=== PATIENT | female | born 1930 | race Caucasian/White ===

== ENCOUNTER 2016-11-09 16:18 | Emergency (ER) | payer BC ==
[2016-11-09 13:43] LABS: BASOPHILS 1.3 %; BASOPHILS ABSOLUTE 0.14 10/3/uL (0.0-0.16); EOSINOPHILS 1.6 %; EOSINOPHILS ABSOLUTE 0.17 10/3/uL (0.0-0.53); ER CBC TAT 0 Hrs 05 Mins; HEMATOCRIT 38.6 % (36.0-48.0); HEMOGLOBIN 12.3 g/dL (12.0-16.0); IMMATURE GRANULOCYTES 0.3 %; IMMATURE GRANULOCYTES ABSOLUTE 0.03 10/3/uL (0.0-0.11); LYMPHOCYTES 16.4 %; LYMPHOCYTES ABSOLUTE 1.79 10/3/uL (0.67-4.30); MEAN CORPUS HGB CONC 31.9 g/dL (32.0-36.0); MEAN CORPUSCULAR HEMOGLOB 29.6 pg (26.0-34.0); MEAN CORPUSCULAR VOLUME 92.8 fL (80-100); MEAN PLATELET VOLUME 11.5 fL (9.2-13.0); MONOCYTES 15.4 %; MONOCYTES ABSOLUTE 1.69 10/3/uL (0.21-1.20); NEUTROPHILS ABSOLUTE 7.12 10/3/uL (2.02-8.40); PLATELET COUNT 199 10/3/uL (150-400); RBC DISTRIBUTION WIDTH 19.1 % (12.0-16.0); RED CELL COUNT 4.16 10/6/uL (4.0-5.6); WHITE BLOOD CELLS 10.9 10/3/uL (4.5-10.5)
[2016-11-09 13:45] LABS: MANUAL DIFF NO %
[2016-11-09 13:51] LABS: INTERNATIONAL NORMAL RATI 3.1 UNITS (-); PARTIAL THROMBO TIME 43.6 SEC (22.5-37.2)
[2016-11-09 14:01] LABS: CHLORIDE, SERUM 106 MMOL/L (96-112); CO2 (CARBON DIOXIDE) 28 MMOL/L (24-34); GFR AFRICAN AMERICAN 78 ML/MIN (>=60); GFR NON AFRICAN AMERICAN 68 ML/MIN (>=60); GLUCOSE, SERUM 91 MG/DL (60-99); POTASSIUM, SERUM 3.7 MMOL/L (3.5-5.3); SODIUM, SERUM 142 MMOL/L (135-148)
[2016-11-09 14:03] LABS: BUN (BLOOD UREA NITROGEN) 22 MG/DL (6-23); CHEST PAIN PROFILE TAT 0 Hrs 25 Mins; TROPONIN I 0.06 NG/ML (<0.05)
[~2016-11-09 16:18] MED LIST: BUM1 PO; CALTRA600D PO; CENTRUM TAB1 TAB PO; COUMADIN3 MG PO; CYANO1000T PO; DIOV80 PO; FERROUS SULF325 M1 PO; HYDROCODONE; IBUPROFEN; LAN125 PO; LIPITOR20 PO; LOP25 PO; NORCO1 TA1 PO; PARAFON FORTE500 MG PO; PRIN5 PO; SPIRO25 PO; TOPROL XL200 MG PO; TOPXL100 PO
[2017-01-29] MEDS ORDERED: OS500+D PO (07:36)
[2017-02-11] MEDS ORDERED: ZYVOXPO PO (23:49)
[2017-02-11] MEDS ORDERED: PRIN2.5 PO (23:51)
== END 2016-11-09 18:50 | disposition home or self-care (01) ==
LOC: ER 16:18
PROVIDERS: Hospitalist
DX: R60.0 Localized edema (principal); I48.91 Unspecified atrial fibrillation; I50.9 Heart failure, unspecified; Z90.49 Acquired absence of other specified parts of digestive tract; Z88.8 Allergy status to other drugs, medicaments and biological substances; Z79.01 Long term (current) use of anticoagulants; Z79.899 Other long term (current) drug therapy
CPT/HCPCS: 71020; 80048; 83735; 83880; 84484; 85025; 85610; 85730; 93005; 99285; A9270-GY

== ENCOUNTER 2017-01-29 06:08 | Inpatient (IN) | payer BC ==
[~2017-01-29] VITALS: Ht 157.5 cm; Wt 102.6 kg
--- NOTE | ~2017-01-29 | CN ---
Consultation Report [facility] [address] [place]. [address] NAME: DELMER CALLAHAN : 34 STATUS : ADM IN [facility]#: [id number] AGE: 86 ADM/REG DATE : 01/29/17 MR#: [id number] REPORT SERV DATE: 01/29/17 DICTATED BY: WILVER CODY DATE: 01/29/17 REPORT STATUS : Draft TRANSCRIBED BY: MODL DATE: 01/29/17 CARDIOLOGY CONSULTATION DATE OF CONSULTATION: [facility] PHYSICIAN: Dr. Garcias. REASON FOR CONSULTATION: History of valvular heart disease. HISTORY OF PRESENT ILLNESS: Ms. Callahan is an 86-year-old woman with a history of valvular heart disease, status post aortic and mitral valve replacements, whose recent echo suggests prosthetic mitral valve stenosis. She has been hospitalized with congestive heart failure and presented to the hospital with worsening lower extremity edema. She has right lower extremity cellulitis with significant erythema involving that leg an elevated white count. She denies chest pain or chest discomfort. She is somewhat somnolent, but is arousable. She denies any chest pain or tightness. She has mild dyspnea. REVIEW OF SYSTEMS: As per the history of present illness. Ten other systems are negative. PAST MEDICAL HISTORY: 1. 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 2. Chronic edema. 3. Chronic kidney disease. FAMILY HISTORY: Positive for cancer and heart failure. SOCIAL HISTORY: No tobacco or alcohol reported. ALLERGIES: NO KNOWN DRUG ALLERGIES. HOME MEDICATIONS: Lipitor 20 at bedtime, Bumex 2 daily, Caltrate, Lanoxin 0.25 daily, metoprolol ER 100 daily, valsartan 80 daily, Coumadin as directed. PHYSICAL EXAMINATION: VITAL SIGNS: Heart rate 84, blood pressure 124/60. GENERAL: The patient is pleasant white female. She is arousable, but a little somnolent. HEENT: Conjunctivae are anicteric, no xanthelasma, lips without cyanosis. NECK: Supple, normal JVP, carotids +2 without bruit. LUNGS: Clear to auscultation bilaterally, no wheezes, rales or rhonchi. CARDIOVASCULAR: Regular rate and rhythm. Normal S1 and S2 without S3. No murmur or rub. PMI is nondisplaced. ABDOMEN: Soft, nontender, nondistended, with normal bowel sounds. No hepatomegaly. Consultation Report [address] [place]. [address] NAME: DELMER CALLAHAN : 32 STATUS : ADM IN PAT#: [id number] AGE: 86 ADM/REG DATE : 01/29/17 MR#: [id number] REPORT SERV DATE: 01/29/17 DICTATED BY: WILVER CODY DATE: 01/29/17 REPORT STATUS : Draft TRANSCRIBED BY: CONSTANTIN DATE: 01/29/17 EXTREMITIES: No clubbing, cyanosis or edema. NEURO/PSYCH: Alert and oriented to person, place and time. No obvious neurologic deficits. Mood and affect normal. IMAGING: EKG shows atrial fibrillation with occasional ventricular systole. LABORATORY DATA: White blood cell count of 17.7, creatinine is 1.5, lactate 3.1, BNP level is 1994. IMPRESSION: 1. Right lower extremity cellulitis. 2. Acute on chronic systolic heart failure secondary to valvular heart disease. 3. Mitral stenosis with severe tricuspid regurgitation and severe pulmonary hypertension. 4. Hypertension. 5. Hypercholesterolemia. 6. Atrial fibrillation. 7. Acute on chronic kidney disease. RECOMMENDATIONS: Ms. Callahan presents with cellulitis. She has a lot of lower extremity edema, some of it is chronic. Creatinine is mildly elevated. I think right now gentle diuresis with supportive care for her cellulitis is warranted. It is unclear whether she will be a good candidate for mitral valve replacement given her multiple comorbidities. WO/MODL Wilver Cody M.D., Ph.D, F.A.C.C. / [id number] CC: Wilver Covington Jr, MD
--- NOTE | ~2017-01-29 | IDS ---
Interim Discharge Summary [facility] [address] [place]. [address] NAME: DELMER HELMS : 32 STATUS : ADM IN PAT#: [id number] AGE: 86 ADM/REG DATE : 01/29/17 MR#: [id number] REPORT SERV DATE: 02/03/17 DICTATED BY: DAVID COSBY DATE: 02/03/17 REPORT STATUS : Draft TRANSCRIBED BY: MODEmeli DATE: 02/03/17 ADMISSION DATE: 01/29/2017 DISCHARGE DATE: CURRENT HOSPITAL DIAGNOSES: 1. Lower extremity cellulitis. 2. Lower extremity edema. 3. Valvular heart disease, not amenable to surgical correction. 4. Acute kidney injury. 5. Chronic atrial fibrillation. 6. Hypertension. 7. Diastolic congestive heart failure. 8. Severe pulmonary hypertension. CONSULTATIONS: To Infectious Disease, Dr. Campbell; renal and [facility], Dr. Garcias. PROCEDURES: None. CURRENT PHYSICAL FINDINGS AND HISTORY OF PRESENT ILLNESS: Please see initial dictated H and P by Dr. Connell. In brief, the patient is very pleasant, 86-year-old female with above medical history, presented with lower extremity edema, erythema, and weeping of the lower extremity. Vital signs at time of admission, initial blood pressure was 115/51, no significant fever noted. LABORATORY DATA: Initial BMP was remarkable for creatinine of 1.52. The patient unfortunately has a creatinine of 2.20 currently secondary to attempts at diuresis. Initial BNP was 1994.0. Lactate was 3.1, subsequent was 2.2. Initial white count was 17,000 reaching a high of 32.5 on 01/30/2017. Subsequent white counts have trended down to the most recent 11.6 on 02/02/2017. Hemoglobin has been 9 to 10. INRs were 2.3 on admission and the patient has remained approximately 2.5 through her hospital stay. Urinalysis was unremarkable. Blood cultures are negative at four days. Wound culture did show MRSA. HOSPITAL COURSE: The patient was admitted. Home medications were reviewed and ordered appropriately. [facility] was consulted for any other recommendations given her valvular heart disease and significant edema. Serial INRs were followed while on Coumadin. She was given IV Bumex scheduled dosing, started on vancomycin. Wound Care was also consulted. She was placed on cardiac telemetry, electrolyte protocol. With the elevated white count the following day, Zosyn was added. I assumed the patient's care on 01/30/2017, repeated her CBC to confirm it was elevated, continued her Bumex, ordered serial labs, and request UA. Cardiology came by and added Diuril. Infectious Disease discontinued the vancomycin and continued Zyvox, also ordered hepatic panel. She started having a bump in her creatinine. Her Bumex and Diuril were discontinued and Renal was consulted. Because of her bump in creatinine, digoxin level was checked, it was elevated at 4. The patient was asymptomatic and no Digibind was used. Nephrology saw the patient, additional diuretics and Interim Discharge Summary [address] [place]. [address] NAME: DELMRE HELMS : 32 STATUS : ADM IN PAT#: [id number] AGE: 86 ADM/REG DATE : 01/29/17 MR#: [id number] REPORT SERV DATE: 02/03/17 DICTATED BY: DAVID COSBY DATE: 02/03/17 REPORT STATUS : Draft TRANSCRIBED BY: CONSTANTIN DATE: 02/03/17 albumin were requested. Pharmacy was consulted to manage her Coumadin. However, a leg culture was done on 01/31/2017. On 02/01/2017, a trial of Bumex drip was done by Nephrology, however, her creatinine has continued to rise. After a long discussion with the patient and her family on 02/02/2017, she requested DNR status and was agreeable to Palliative Care consult next available. On 02/03/2017, her drip was stopped and renal signed off. Cardiology continues to follow. She was transitioned to daily IV Bumex. On 02/03/2017, her Zosyn was discontinued and she was placed on p.o. Zyvox with the MRSA culture. CURRENT DISPOSITION: The patient will have Palliative Care consult on Saturday. We will get recommendations from ID on length of continuing her antibiotic. Renal has signed off. Cardiology has very little to offer. I have discussed also with the patient's sons and power of attorney recruiter, they feel they cannot meet her needs at home and have requested placement, and this will be initiated. LEEANNE/CONSTANTIN David Cosby M.D. / [id number] CC: Coty Hwang M.D.
--- NOTE | ~2017-01-29 | CN ---
Consultation Report [facility] [address] [place]. [address] NAME: DELMER HELMS : 32 STATUS : ADM IN [facility]#: [id number] AGE: 86 ADM/REG DATE : 01/29/17 MR#: [id number] REPORT SERV DATE: 01/30/17 DICTATED BY: ALEXUS CAMPBELL DATE: 01/30/17 REPORT STATUS : Draft TRANSCRIBED BY: MODL DATE: 01/30/17 INFECTIOUS DISEASE CONSULTATION DATE OF CONSULTATION: 01/30/2017 REASON FOR CONSULTATION: Sepsis and worsening leukocytosis. HISTORY OF PRESENT ILLNESS: This is an 86-year-old female with a past medical history of rheumatic valvular heart disease with a history of both aortic and mitral valve replacements who also has history of atrial fibrillation, hypertension, hyperlipidemia, CHF, and some chronic lower extremity edema. Despite her mitral valve replacement in 2009, she has developed severe mitral stenosis. She has had worsening recent lower extremity edema but a few days prior to her January 29 admission, she developed worsening redness and pain and weeping from the right lower leg. She presented to the emergency department early yesterday morning and was found to have a white blood cell count of 17,700. Blood cultures were done, and she was started on empiric antibiotics with vancomycin. Zosyn was added with first dose this morning around 4:30. Her repeat white blood cell count today is 32,500. She says she overall feels about the same. She has been for the most part hemodynamically stable although later today has developed relative hypotension with blood pressures in the 90s systolic range. The patient also tells me that she had a laparoscopic cholecystectomy about a month ago at [facility]. She denies any nausea, vomiting, diarrhea, or abdominal pain. PAST MEDICAL HISTORY: As outlined above. Her aortic valve replacement was in 2009. She also has a history of pulmonary hypertension, iron-deficiency anemia, breast reduction surgery. ALLERGIES: NO KNOWN DRUG ALLERGIES. PRESENT MEDICATIONS: In addition to the antibiotics include Lipitor, Bumex, Caltrate, vitamin D, digoxin, Toprol-XL, and Coumadin. SOCIAL HISTORY: The patient is . Nonsmoker and nondrinker. FAMILY HISTORY: Notable for brother with diabetes. REVIEW OF SYSTEMS: No chest pain or shortness of breath. No genitourinary symptoms. She denies any trauma to her legs. The rest of the 10-point review of systems is also negative except as outlined above. PHYSICAL EXAMINATION: VITAL SIGNS: Patient weighs 68 kg. She is afebrile. Blood pressure 98/46, pulse 60, respiratory rate 16 to 18. GENERAL: She is alert, lying in a chair. No acute distress. Consultation Report [facility] [id number] [place]. [address] NAME: DELMER HELMS : 32 STATUS : ADM IN PAT#: [id number] AGE: 86 ADM/REG DATE : 01/29/17 MR#: [id number] REPORT SERV DATE: 01/30/17 DICTATED BY: ALEXUS CAMPBELL DATE: 01/30/17 REPORT STATUS : Draft TRANSCRIBED BY: CONSTANTIN DATE: 01/30/17 HEAD AND NECK: Conjunctivae normal. The oral cavity is clear. Neck is supple. LUNGS: Clear to auscultation anteriorly. CARDIAC: Shows a regular rate and rhythm. She does have a 2/6 systolic murmur heard throughout the precordium. No rub. ABDOMEN: Obese, soft, and nontender. Specifically, no right upper quadrant tenderness to palpation. She is sitting in a chair, and I had a little difficulty seeing wounds from laparoscopic cholecystectomy. EXTREMITIES: The patient has quite significant edema of her lower legs and feet. The right lower leg has a large area of erythema and warmth with weeping of serous fluid but no significant open wounds and nothing really to culture. She is tender over this area although not dramatically so. I do not appreciate any crepitus. No bulla. The patient has a peripheral IV in her left upper extremity without phlebitis. SKIN: Shows no rash. LABORATORY STUDIES: White blood cell count as mentioned, she does not have a left shift, hemoglobin 10.0, and platelets 178. Creatinine 1.54, was 1.52 yesterday and was 0.80 on November 09. Procalcitonin 0.19. Lactate 2.2 on admission. Admission liver function tests showed a bilirubin of 2.2, alkaline phosphatase 152, and AST of 42. Blood cultures are negative to date. On January 25, the patient had a venous reflux study which showed no definite reflux in the right or left lower extremity although the exam was somewhat limited. On the same day, she had arterial Dopplers of her lower extremities which showed minimal if any arterial occlusive disease at or above the level of the ankles. Also, there is minimal if any small vessel disease in the feet. Chest x-ray is negative. IMPRESSION: Sepsis on admission secondary to right lower extremity cellulitis with white blood cell count going from 17.7 yesterday to 32.5 today. This jump in her white blood cell count may be secondary to possible subtherapeutic vancomycin levels. It is also possible she has a gram-negative ree cellulitis and she was not started on Zosyn until really at the time of the blood draw this morning. Overall though I think that is unlikely. I do not think she has a deeper surgical infection. She also gives this history of recent laparoscopic cholecystectomy and does have elevated liver function tests. These laboratory elevations may be secondary to hepatic congestion, but we need to consider the possibility of a complication of her surgery if she does not improve. She has both aortic and mitral valve replacements. PLAN: 1. We will change vancomycin to Zyvox for more reliable therapeutic levels in this particular setting with edema, acute kidney injury, and her age. 2. I will continue Zosyn for now. 3. Repeat white blood cell count in the morning along with liver function tests. 4. She may need a CT scan of the right lower extremity although it would need to be without contrast and may need a CT scan of the abdomen and pelvis if she does not improve; however, a noncontrast CT of the leg is unlikely to be very helpful. Consultation Report [address] [place]. [address] NAME: DELMER HELMS : 32 STATUS : ADM IN [facility]#: [id number] AGE: 86 ADM/REG DATE : 01/29/17 MR#: [id number] REPORT SERV DATE: 01/30/17 DICTATED BY: ALEXUS CAMPBELL DATE: 01/30/17 REPORT STATUS : Draft TRANSCRIBED BY: CONSTANTIN DATE: 01/30/17 STEVEN/CONSTANTIN Alexus Campbell M.D. / [id number] CC: Coty Hwang M.D.
--- NOTE | ~2017-01-29 | CN ---
Consultation Report [facility] [address] [place]. [address] NAME: DELMER CALLAHAN : 32 STATUS : ADM IN PAT#: [id number] AGE: 86 ADM/REG DATE : 01/29/17 MR#: [id number] REPORT SERV DATE: 01/31/17 DICTATED BY: DATE: REPORT STATUS : Draft TRANSCRIBED BY: MODL DATE: 01/31/17 DATE OF CONSULTATION: REASON FOR CONSULTATION: Acute kidney injury. HISTORY OF PRESENT ILLNESS: Ms. Callahan is an 86-year-old white female with no history of kidney disease in the past, but has significant and cardiac issues that include severe pulmonary hypertension, history of mitral valve replacement with prosthetic mitral stenosis, aortic insufficiency, severe TR, and she presented to the hospital with worsening redness and edema to the right lower extremity. She states it started prior to presentation and increasing shortness of breath. She was felt to have sepsis due to right lower extremity cellulitis, admitted for further evaluation, being currently in the hospital with antibiotics. They have tried to diurese her, however, her kidney function has gone from baseline creatinine 0.7 to 0.8, it was 1.5 on admission, now it is up to 1.7, and we have been asked to see the patient in consultation. She denies any dysuria or hematuria. No kidney disease in the past. PAST MEDICAL HISTORY: Pulmonary hypertension, iron deficiency anemia, breast reduction, mitral stenosis, mitral valve replacement, aortic insufficiency, severe pulmonary hypertension, tricuspid regurgitation, paroxysmal atrial fibrillation, and heart failure. ALLERGIES: NONE. SOCIAL HISTORY: She is . No tobacco, alcohol, or illicit drug use. FAMILY MEDICAL HISTORY: Negative for any end-stage renal disease. MEDICATIONS: Medications at the time of consultation, Zyvox, Zosyn, digoxin, Bumex, Lipitor, Caltrate, and Coumadin. REVIEW OF SYSTEMS: A 12-point review of systems is obtained and negative with the exception that in the HPI. PHYSICAL EXAMINATION: VITAL SIGNS: Temp 98, blood pressure 103/49, pulse 65, respiratory rate 17, O2 saturation is 95% on 2 L. GENERAL: This is a pleasant, cooperative, elderly white female. She is awake, alert, and oriented x3. Sitting up in chair at bedside. HEENT: Normocephalic and atraumatic. Conjunctivae are clear. Sclerae are anicteric. Pupils are equal and round. Oral mucosa is moist. NECK: Supple. She does have some neck vein distention. LUNGS: Her respirations are even and unlabored. Breath sounds are clear to auscultation. CARDIAC: Her heart rate is regular. She has a 4/6 systolic ejection murmur best heard over mitral region. ABDOMEN: Soft, nontender. Bowel sounds are active. No masses or hepatosplenomegaly. No Consultation Report [facility] [id number]. [address] NAME: DELMER CALLAHAN : 32 STATUS : ADM IN PAT#: [id number] AGE: 86 ADM/REG DATE : 01/29/17 MR#: [id number] REPORT SERV DATE: 01/31/17 DICTATED BY: DATE: REPORT STATUS : Draft TRANSCRIBED BY: MODL DATE: 01/31/17 CVA tenderness. BACK: Within normal limits. EXTREMITIES: She has 3+ edema all the way up to thighs to the right lower extremity. She has some erythema and clear oozing from the skin below the knee. NEUROLOGIC: No focal deficits. Mood and affect, she is very pleasant and appropriate. PERTINENT LABS AND X-RAYS: WBC 20,000, hemoglobin and hematocrit are 9 and 29, platelets are 187,000. Sodium 133, potassium 4.4, chloride 100, CO2 of 26, BUN 48, creatinine 1.77. Urine is unavailable for review. Chest x-ray negative. IMPRESSION: 1. Acute kidney injury. 2. Sepsis. 3. Right lower extremity cellulitis. 4. Acute exacerbation of congestive heart failure secondary to her valvular heart disease. 5. Severe mitral stenosis. 6. Severe pulmonary hypertension. 7. Paroxysmal atrial fibrillation. PLAN/RECOMMENDATION: Acute kidney injury in the setting of sepsis due to her cellulitis, now with acute exacerbation of heart failure, most likely right-sided. She is probably developing cardiorenal syndrome. We will diurese as she tolerates it with her lowish blood pressures. We will try to give her some albumin to help boost blood pressure as she has low albumin. Follow labs, I's and O's, and Orozco catheter for accuracy. We will follow along with you. Avoid nephrotoxins as able. Further orders and recommendations pending clinical course. GENA/SHANDRAL MAGDALENO Singer / [id number] CC: Coty Hwang M.D.
--- NOTE | ~2017-01-29 | DS ---
Discharge Summary [facility] [address] [facility] [place]. [address] NAME: DELMER HELMS : 34 STATUS : DIS IN PAT#: [id number] AGE: 86 ADM/REG DATE : 01/29/17 MR#: [id number] REPORT SERV DATE: 02/07/17 DICTATED BY: BRISEYDA WHEELER DATE: 02/06/17 REPORT STATUS : Draft TRANSCRIBED BY: MODL DATE: 02/06/17 ADMISSION DATE: 01/29/2017 DISCHARGE DATE: 02/06/2017 DISCHARGE DIAGNOSES: 1. Acute on chronic congestive heart failure, diastolic dysfunction with valvular heart disease. 2. Acute kidney injury on chronic kidney disease with anasarca presentation. 3. Valvular heart disease. The patient is not a candidate for surgical intervention. 4. Right leg cellulitis, seen by Infectious Disease, on treatment for that. 5. Obesity. HISTORY OF PRESENT ILLNESS: This is an 86-year-old female patient who came to the hospital with short of breath and swelling. Please see dictated H and P. HOSPITAL COURSE: Please see dictated interim discharge summary. Briefly, the patient was hospitalized with heart failure, anasarca, and treated with IV diuretics. However, over the course, the patient's renal function deteriorated significantly. Nephrology signed off, did not recommend any diuretics, and the patient was thought to be a palliative care candidate. Seen by Dr. Cardoso and discharge was made to shelter facility with Palliative Care. The patient also mentioned that she has a clear mind and she wants to try even nursing facility, although her prognosis is very poor for the idea of rehabilitation. DISCHARGE MEDICATIONS: Continue the Bumex 2 mg once a day, Lipitor 20 mg once a day, calcium with vitamin D once a day, Toprol was discontinued, Coumadin 2 mg once a day, and Diovan 80 mg once a day. Again, the patient has a very poor prognosis and pretty soon her life expectancy will be estimated as very short. TIME SPENT: More than 30 minutes in discharge preparation. EKL/MODL Briseyda Wheeler M.D. / [id number] CC: Coty Farfan M.D.
--- NOTE | ~2017-01-29 | HP ---
History And Physical [place] [id number] [facility] [place]. [address] NAME: DELMER HELMS : 34 STATUS : ADM IN [facility]#: [id number] AGE: 86 ADM/REG DATE : 01/29/17 MR#: [id number] REPORT SERV DATE: 01/29/17 DICTATED BY: SOFÍA CONNELL DATE: 01/29/17 REPORT STATUS : Draft TRANSCRIBED BY: MODEmeli DATE: 01/29/17 DATE OF ADMISSION: 01/29/2017 CHIEF COMPLAINT: Lower extremity edema, and bilateral lower extremity pain and redness right greater than left. HISTORY OF PRESENT ILLNESS: The patient is a very pleasant 86-year-old white female with an unfortunate past medical history. She has a history of rheumatic valvular heart disease, actually had a bioprosthetic valve at both her aortic and mitral location, mitral valve back in 2009. She subsequently has developed severe mitral stenosis and actually after reviewing some records from [facility], it was recommended that she be seen in the [facility]. She met with Dr. Webb and she was felt to not be a candidate for an open procedure. She states that she has had swelling for some time, but over the last few days it has been much worse and her right leg has become progressively more red and weepy. She has had several wounds present on the leg that she has been seeing wound care for. She had arterial venous study. She denies ongoing fever, but again she has had some pain medicine down here, but the history is a bit difficult. She really can provide no other history. She states she is short of breath all the time and the edema has become so problematic that she has difficulty ambulating. PAST MEDICAL HISTORY: 1. History of AVR in 2009. 2. History of MVR, status post bioprosthetic valve in 2009, now with severe mitral stenosis. 3. Chronic atrial fibrillation, on anticoagulation. 4. Hypertension. 5. Hyperlipidemia. 6. Diastolic dysfunction/CHF. 7. Iron deficiency anemia. 8. Asthma. 9. Obesity. 10.Severe pulmonary hypertension. 11.Tricuspid regurgitation. SOCIAL HISTORY: She is . She has two sons. She denies any tobacco or alcohol use. FAMILY HISTORY: Her father in his sleep. She had a mother who had some type of cancer. Her brother secondary to diabetes, and she had a sister who actually choked. SURGICAL HISTORY: 1. She has had a breast reduction in 1978. 2. Open heart surgery with mitral and aortic bioprosthetic valve in 2009. ALLERGIES: NO KNOWN DRUG ALLERGIES. HOME MEDICATIONS: Reviewed and attached. History And Physical [address] [address] NAME: DELMER HELMS : 34 STATUS : ADM IN [facility]#: [id number] AGE: 86 ADM/REG DATE : 01/29/17 MR#: [id number] REPORT SERV DATE: 01/29/17 DICTATED BY: SOFÍA CONNELL DATE: 01/29/17 REPORT STATUS : Draft TRANSCRIBED BY: CONSTANTIN DATE: 01/29/17 REVIEW OF SYSTEMS: Full 10-point review of systems obtained. Pertinent positives are mentioned in the HPI. PHYSICAL EXAMINATION: VITAL SIGNS: BP 138/64, sats are 99% on 1 L, pulse is 79, respiratory rate 20, temperature 97.4. GENERAL: Obese white female, sleepy. HEENT: Normocephalic, atraumatic. Throat is clear. NECK: Supple. HEART: Regular rate and rhythm with 2/6 systolic murmur. LUNGS: She has crackles at both bases. ABDOMEN: Soft, nondistended, nontender. Normoactive bowel sounds are noted. EXTREMITIES: Warm and dry. She has doughy edema to the knee, right greater than left. Her right lower extremity is erythematous all the way to the top of the foot with several excoriations present which are also red and weeping, it is very warm to the touch also and painful to the touch. NEURO: She is sleepy, but she arouses and answers questions but she tends to drift off to sleep during questions. She appears to move all four extremities symmetrically. Her speech is intact. PSYCH: Mood and affect are appropriate. LABORATORY AND X-RAY: EKG shows a left bundle and old atrial fibrillation which was known. Chest x-ray shows cardiomegaly, prominent vasculature. Procalcitonin is 0.19. Lactate 2.2. INR is 2.3. BNP is 1994. Sodium 135, potassium 4.8, chloride 99, CO2 of 27, BUN and creatinine 43 and 1.52, glucose is 84. LFTs are normal. Albumin is 2.8. Total bilirubin is 2.2. Alkaline phosphatase is 152, AST is 42, ALT is 29. White count is 17, H and H 11 and 35, platelets are 265. Arterial duplex of bilateral lower extremities did not show any significant arterial occlusive disease. Venous Doppler did not show any evidence of DVT that was done on 01/25/2017. ASSESSMENT/PLAN: 1. Lower extremity cellulitis likely exacerbated by ongoing significant peripheral edema. She definitely has a cellulitis on the right side. I am going to place her on some IV vanco, culture one of the wounds. Culture her blood, and go from there. 2. Volume overload secondary to severe mitral stenosis and now pulmonary venous congestion, severe peripheral edema, decompensated heart failure. There was a mention in the notes by Dr. Webb that he would be interested in her going to the [facility] to discuss possible transcatheter intervention if this is a possibility. The patient has never made it to that appointment; therefore, we are consulted [facility] to see her in consultation. In the meantime, we will diurese her with Bumex. Monitor in's and out's. Check daily weights. Lower her sodium intake and fluid restrict her. I think without any intervention at all she would likely do poorly and we may want to consider hospice. 3. Chronic atrial fibrillation. Continue anticoagulation. Currently rate controlled. 4. Acute kidney injury. Her creatinine is worse. This is in the face of ongoing decompensated heart failure from mitral stenosis and ongoing cellulitis. I suspect we History And Physical [address] [address] NAME: KYLE HELMSSINCERETIMMY VASQUEZ : 34 STATUS : ADM IN PAT#: [id number] AGE: 86 ADM/REG DATE : 01/29/17 MR#: [id number] REPORT SERV DATE: 01/29/17 DICTATED BY: SOFÍA CONNELL DATE: 01/29/17 REPORT STATUS : Draft TRANSCRIBED BY: CONSTANTIN DATE: 01/29/17 diurese her if she is going to have increasing problems with her kidney function. We will need to follow her closely. Monitor urine output and go from there. 5. DVT prophylaxis. She is already fully anticoagulated. 6. Disposition. Pending above. NIDHI/CONSTANTIN Sofía Connell M.D. / [id number] CC: Coty Hwang M.D. Lisa Gail Carkner, M.D.
[2017-01-29 07:06] LABS: BASOPHILS 0.6 %; BASOPHILS ABSOLUTE 0.11 10/3/uL (0.0-0.16); EOSINOPHILS ABSOLUTE 0.18 10/3/uL (0.0-0.53); HEMOGLOBIN 10.7 g/dL (12.0-16.0); IMMATURE GRANULOCYTES 0.3 %; IMMATURE GRANULOCYTES ABSOLUTE 0.05 10/3/uL (0.0-0.11); LYMPHOCYTES 8.2 %; LYMPHOCYTES ABSOLUTE 1.45 10/3/uL (0.67-4.30); MEAN CORPUS HGB CONC 31.2 g/dL (32.0-36.0); MEAN PLATELET VOLUME 10.8 fL (9.2-13.0); MONOCYTES 13.2 %; MONOCYTES ABSOLUTE 2.33 10/3/uL (0.21-1.20); NEUTROPHILS 76.7 %; NEUTROPHILS ABSOLUTE 13.57 10/3/uL (2.02-8.40); RBC DISTRIBUTION WIDTH 20.8 % (12.0-16.0); RED CELL COUNT 4.13 10/6/uL (4.0-5.6)
[2017-01-29 07:09] LABS: ER CBC TAT 0 Hrs 09 Mins; HEMATOCRIT 34.3 % (36.0-48.0); MANUAL DIFF NO %; MEAN CORPUSCULAR HEMOGLOB 25.9 pg (26.0-34.0); MEAN CORPUSCULAR VOLUME 83.1 fL (80-100); PLATELET COUNT 265 10/3/uL (150-400); WHITE BLOOD CELLS 17.7 10/3/uL (4.5-10.5)
[2017-01-29 07:22] LABS: CALCIUM, SERUM 8.8 MG/DL (8.5-10.4); CHLORIDE, SERUM 99 MMOL/L (96-112); CO2 (CARBON DIOXIDE) 27 MMOL/L (24-34); GLUCOSE, SERUM 84 MG/DL (60-99); SGOT(AST) 42 U/L (5-40); SGPT(ALT) 29 U/L (5-65); TOTAL PROTEIN 6.7 G/DL (6.0-8.5)
[2017-01-29 07:23] LABS: A/G RATIO 0.7 (0.7-1.9); ALBUMIN 2.8 G/DL (3.5-5.0); ALKALINE PHOSPHATASE 152 U/L (45-117); BUN (BLOOD UREA NITROGEN) 43 MG/DL (6-23); CREATININE 1.52 MG/DL (0.55-1.02); GFR AFRICAN AMERICAN 36 ML/MIN (>=60); GFR NON AFRICAN AMERICAN 31 ML/MIN (>=60); GLOBULIN 3.9 G/DL (2.5-4.1); LACTATE 3.1 MMOL/L (0.3-2.4); POTASSIUM, SERUM 4.8 MMOL/L (3.5-5.3); SODIUM, SERUM 135 MMOL/L (135-148); TOTAL BILIRUBIN 2.2 MG/DL (0-1.2)
[2017-01-29] MEDS ORDERED: LAN25 PO (07:35)
[2017-01-29] MEDS ORDERED: DIOV80 PO (07:36)
[2017-01-29] MEDS ORDERED: LIPITOR20 PO (07:36)
[2017-01-29] MEDS ORDERED: CALTRA600D PO (07:36)
[2017-01-29] MEDS ORDERED: C2 PO (07:36)
[2017-01-29] MEDS ORDERED: TOPXL100 PO (07:36)
[2017-01-29] MEDS ORDERED: BUM2 PO (07:36)
[2017-01-29 08:19] LABS: INTERNATIONAL NORMAL RATI 2.3 UNITS (-); PARTIAL THROMBO TIME 45.4 SEC (22.5-37.2)
[2017-01-29 08:21] LABS: PROTIME (NOT ORD) 25.2 SEC (12.0-14.5)
[2017-01-30 02:59] LABS: INTERNATIONAL NORMAL RATI 2.4 UNITS (-)
[2017-01-30 03:43] LABS: HEMATOCRIT 31.2 % (36.0-48.0); MEAN CORPUS HGB CONC 32.1 g/dL (32.0-36.0); MEAN CORPUSCULAR HEMOGLOB 26.7 pg (26.0-34.0); MEAN CORPUSCULAR VOLUME 83.2 fL (80-100); MEAN PLATELET VOLUME 11.1 fL (9.2-13.0); PLATELET COUNT 237 10/3/uL (150-400); RBC DISTRIBUTION WIDTH 20.8 % (12.0-16.0); RED CELL COUNT 3.75 10/6/uL (4.0-5.6)
[2017-01-30 03:44] LABS: MANUAL DIFF YES %; WHITE BLOOD CELLS 32.1 10/3/uL (4.5-10.5)
[2017-01-30 03:51] LABS: BUN (BLOOD UREA NITROGEN) 45 MG/DL (6-23); CALCIUM, SERUM 8.5 MG/DL (8.5-10.4); CHLORIDE, SERUM 99 MMOL/L (96-112); CO2 (CARBON DIOXIDE) 27 MMOL/L (24-34); CREATININE 1.54 MG/DL (0.55-1.02); GFR AFRICAN AMERICAN 36 ML/MIN (>=60); GFR NON AFRICAN AMERICAN 31 ML/MIN (>=60); GLUCOSE, SERUM 80 MG/DL (60-99); POTASSIUM, SERUM 4.8 MMOL/L (3.5-5.3); SODIUM, SERUM 135 MMOL/L (135-148)
[2017-01-30 04:01] LABS: ANISOCYTOSIS 1+ (5-10/OIF) (0-5/OIF); BAND NEUTROPHILS 1 %; BURR CELLS 1+ (3-10/OIF) (0-2/OIF); LYMPHOCYTES 4 %; LYMPHOCYTES ABSOLUTE (CALC) 1.28 10/3/uL (0.67-4.30); MONOCYTES 3 %; MONOCYTES ABSOLUTE (CALC) 0.96 10/3/uL (0.21-1.20); NEUTROPHILS ABSOLUTE (CALC) 29.85 10/3/uL (2.02-8.40); PLATELET ESTIMATE ADQ (ADEQUATE); SCHISTOCYTES OCC (0-2/OIF); SEGMENTED NEUTROPHIL (0) 92 %; TEARDROP SHAPED RBCS FEW (3-10/OIF); TOTAL NUCLEATED CELLS 100
[2017-01-30 09:08] LABS: HEMATOCRIT 31.7 % (36.0-48.0); MEAN CORPUS HGB CONC 31.5 g/dL (32.0-36.0); MEAN CORPUSCULAR HEMOGLOB 26.4 pg (26.0-34.0); MEAN CORPUSCULAR VOLUME 83.6 fL (80-100); MEAN PLATELET VOLUME 11.1 fL (9.2-13.0); PLATELET COUNT 178 10/3/uL (150-400); RBC DISTRIBUTION WIDTH 20.8 % (12.0-16.0); RED CELL COUNT 3.79 10/6/uL (4.0-5.6)
[2017-01-30 09:10] LABS: MANUAL DIFF YES %; WHITE BLOOD CELLS 32.5 10/3/uL (4.5-10.5)
[2017-01-30 09:24] LABS: ANISOCYTOSIS 1+ (5-10/OIF) (0-5/OIF); BAND NEUTROPHILS 1 %; LYMPHOCYTES 5 %; LYMPHOCYTES ABSOLUTE (CALC) 1.63 10/3/uL (0.67-4.30); MONOCYTES 5 %; MONOCYTES ABSOLUTE (CALC) 1.63 10/3/uL (0.21-1.20); NEUTROPHILS ABSOLUTE (CALC) 29.25 10/3/uL (2.02-8.40); PLATELET ESTIMATE ADQ (ADEQUATE); SEGMENTED NEUTROPHIL (0) 89 %; TOTAL NUCLEATED CELLS 100
[2017-01-31 04:38] LABS: BASOPHILS 0.4 %; BASOPHILS ABSOLUTE 0.08 10/3/uL (0.0-0.16); EOSINOPHILS 3.5 %; EOSINOPHILS ABSOLUTE 0.71 10/3/uL (0.0-0.53); HEMATOCRIT 29.2 % (36.0-48.0); HEMOGLOBIN 9.4 g/dL (12.0-16.0); IMMATURE GRANULOCYTES 0.4 %; IMMATURE GRANULOCYTES ABSOLUTE 0.08 10/3/uL (0.0-0.11); LYMPHOCYTES 7.2 %; LYMPHOCYTES ABSOLUTE 1.47 10/3/uL (0.67-4.30); MEAN CORPUS HGB CONC 32.2 g/dL (32.0-36.0); MEAN CORPUSCULAR HEMOGLOB 26.6 pg (26.0-34.0); MEAN CORPUSCULAR VOLUME 82.7 fL (80-100); MEAN PLATELET VOLUME 10.6 fL (9.2-13.0); MONOCYTES 10.1 %; MONOCYTES ABSOLUTE 2.05 10/3/uL (0.21-1.20); NEUTROPHILS 78.4 %; NEUTROPHILS ABSOLUTE 15.96 10/3/uL (2.02-8.40); PLATELET COUNT 187 10/3/uL (150-400); RED CELL COUNT 3.53 10/6/uL (4.0-5.6); WHITE BLOOD CELLS 20.4 10/3/uL (4.5-10.5)
[2017-01-31 04:40] LABS: MANUAL DIFF NO %
[2017-01-31 04:41] LABS: INTERNATIONAL NORMAL RATI 3.1 UNITS (-); PROTIME (NOT ORD) 31.4 SEC (12.0-14.5)
[2017-01-31 05:09] LABS: BUN (BLOOD UREA NITROGEN) 48 MG/DL (6-23); CALCIUM, SERUM 7.8 MG/DL (8.5-10.4); CHLORIDE, SERUM 100 MMOL/L (96-112); CO2 (CARBON DIOXIDE) 26 MMOL/L (24-34); CREATININE 1.72 MG/DL (0.55-1.02); GFR AFRICAN AMERICAN 31 ML/MIN (>=60); GFR NON AFRICAN AMERICAN 27 ML/MIN (>=60); GLUCOSE, SERUM 89 MG/DL (60-99); POTASSIUM, SERUM 4.4 MMOL/L (3.5-5.3); SGOT(AST) 29 U/L (5-40); SGPT(ALT) 16 U/L (5-65); SODIUM, SERUM 133 MMOL/L (135-148); TOTAL PROTEIN 5.4 G/DL (6.0-8.5)
[2017-01-31 05:11] LABS: ALKALINE PHOSPHATASE 133 U/L (45-117)
[2017-01-31 05:16] LABS: ANISOCYTOSIS 1+ (5-10/OIF) (0-5/OIF); PLATELET ESTIMATE ADQ (ADEQUATE)
[2017-01-31 05:17] LABS: POIKILOCYTOSIS 1+ (5-10/OIF) (0-5/OIF); POLYCHROMASIA 1+ (2-5/OIF) (0-1/OIF); SCHISTOCYTES OCC (0-2/OIF)
[2017-01-31 20:24] LABS: ASCORBIC ACID (UR NOT ORDER) NEG (NEG); BILIRUBIN, URINE NEGATIVE (NEG); KETONE, URINE NEGATIVE (NEG); LEUKOCYTE ESTERASE(NOT OR NEG (NEG); WBC (NOT ORDERED) (RFLEX) 4 (0-5)
[2017-01-31 21:56] LABS: CREATININE, URINE 58.7 MG/DL
[2017-02-01 05:06] LABS: INTERNATIONAL NORMAL RATI 2.7 UNITS (-); PROTIME (NOT ORD) 28.5 SEC (12.0-14.5)
[2017-02-01 05:08] LABS: BASOPHILS 0.5 %; BASOPHILS ABSOLUTE 0.08 10/3/uL (0.0-0.16); EOSINOPHILS 3.8 %; EOSINOPHILS ABSOLUTE 0.55 10/3/uL (0.0-0.53); HEMATOCRIT 30.6 % (36.0-48.0); HEMOGLOBIN 9.8 g/dL (12.0-16.0); IMMATURE GRANULOCYTES 0.3 %; IMMATURE GRANULOCYTES ABSOLUTE 0.04 10/3/uL (0.0-0.11); LYMPHOCYTES 7.8 %; LYMPHOCYTES ABSOLUTE 1.14 10/3/uL (0.67-4.30); MEAN CORPUSCULAR HEMOGLOB 26.4 pg (26.0-34.0); MEAN CORPUSCULAR VOLUME 82.5 fL (80-100); MEAN PLATELET VOLUME 10.6 fL (9.2-13.0); NEUTROPHILS 74.6 %; NEUTROPHILS ABSOLUTE 10.86 10/3/uL (2.02-8.40); PLATELET COUNT 189 10/3/uL (150-400); RBC DISTRIBUTION WIDTH 20.7 % (12.0-16.0); RED CELL COUNT 3.71 10/6/uL (4.0-5.6); WHITE BLOOD CELLS 14.6 10/3/uL (4.5-10.5)
[2017-02-01 05:09] LABS: MANUAL DIFF NO %
[2017-02-01 05:21] LABS: CALCIUM, SERUM 8.1 MG/DL (8.5-10.4); CHLORIDE, SERUM 97 MMOL/L (96-112); CO2 (CARBON DIOXIDE) 24 MMOL/L (24-34); CREATININE 2.09 MG/DL (0.55-1.02); GFR AFRICAN AMERICAN 25 ML/MIN (>=60); GFR NON AFRICAN AMERICAN 21 ML/MIN (>=60); GLUCOSE, SERUM 89 MG/DL (60-99); PHOSPHORUS, SERUM 4.6 MG/DL (2.5-4.5); POTASSIUM, SERUM 4.3 MMOL/L (3.5-5.3); SODIUM, SERUM 133 MMOL/L (135-148)
[2017-02-01 05:24] LABS: ALBUMIN 2.7 G/DL (3.5-5.0); BUN (BLOOD UREA NITROGEN) 55 MG/DL (6-23)
[2017-02-02 06:03] LABS: BASOPHILS 0.5 %; BASOPHILS ABSOLUTE 0.06 10/3/uL (0.0-0.16); EOSINOPHILS 3.3 %; EOSINOPHILS ABSOLUTE 0.38 10/3/uL (0.0-0.53); HEMATOCRIT 30.3 % (36.0-48.0); HEMOGLOBIN 9.6 g/dL (12.0-16.0); IMMATURE GRANULOCYTES 0.3 %; IMMATURE GRANULOCYTES ABSOLUTE 0.03 10/3/uL (0.0-0.11); LYMPHOCYTES 9.8 %; LYMPHOCYTES ABSOLUTE 1.14 10/3/uL (0.67-4.30); MEAN CORPUS HGB CONC 31.7 g/dL (32.0-36.0); MEAN CORPUSCULAR HEMOGLOB 26.1 pg (26.0-34.0); MEAN CORPUSCULAR VOLUME 82.3 fL (80-100); MONOCYTES 11.8 %; MONOCYTES ABSOLUTE 1.37 10/3/uL (0.21-1.20); NEUTROPHILS 74.3 %; NEUTROPHILS ABSOLUTE 8.65 10/3/uL (2.02-8.40); PLATELET COUNT 165 10/3/uL (150-400); RBC DISTRIBUTION WIDTH 20.6 % (12.0-16.0); RED CELL COUNT 3.68 10/6/uL (4.0-5.6); WHITE BLOOD CELLS 11.6 10/3/uL (4.5-10.5)
[2017-02-02 06:04] LABS: MANUAL DIFF NO %
[2017-02-02 06:06] LABS: INTERNATIONAL NORMAL RATI 2.5 UNITS (-); PROTIME (NOT ORD) 26.9 SEC (12.0-14.5)
[2017-02-02 06:13] LABS: ALBUMIN 3.1 G/DL (3.5-5.0); CALCIUM, SERUM 8.1 MG/DL (8.5-10.4); CHLORIDE, SERUM 96 MMOL/L (96-112); CO2 (CARBON DIOXIDE) 23 MMOL/L (24-34); CREATININE 2.21 MG/DL (0.55-1.02); GFR AFRICAN AMERICAN 23 ML/MIN (>=60); GFR NON AFRICAN AMERICAN 20 ML/MIN (>=60); GLUCOSE, SERUM 87 MG/DL (60-99); PHOSPHORUS, SERUM 4.4 MG/DL (2.5-4.5); SODIUM, SERUM 132 MMOL/L (135-148)
[2017-02-02 06:15] LABS: BUN (BLOOD UREA NITROGEN) 61 MG/DL (6-23)
[2017-02-03 04:47] LABS: INTERNATIONAL NORMAL RATI 2.5 UNITS (-); PROTIME (NOT ORD) 26.8 SEC (12.0-14.5)
[2017-02-03 04:54] LABS: ALBUMIN 3.7 G/DL (3.5-5.0); BUN (BLOOD UREA NITROGEN) 61 MG/DL (6-23); CALCIUM, SERUM 8.7 MG/DL (8.5-10.4); CHLORIDE, SERUM 96 MMOL/L (96-112); CO2 (CARBON DIOXIDE) 23 MMOL/L (24-34); GFR AFRICAN AMERICAN 23 ML/MIN (>=60); GFR NON AFRICAN AMERICAN 20 ML/MIN (>=60); GLUCOSE, SERUM 78 MG/DL (60-99); PHOSPHORUS, SERUM 4.7 MG/DL (2.5-4.5); POTASSIUM, SERUM 3.9 MMOL/L (3.5-5.3); SODIUM, SERUM 131 MMOL/L (135-148)
[2017-02-04 05:35] LABS: INTERNATIONAL NORMAL RATI 2.5 UNITS (-)
[2017-02-04 05:39] LABS: BUN (BLOOD UREA NITROGEN) 63 MG/DL (6-23); CALCIUM, SERUM 8.4 MG/DL (8.5-10.4); CHLORIDE, SERUM 95 MMOL/L (96-112); CO2 (CARBON DIOXIDE) 22 MMOL/L (24-34); CREATININE 2.45 MG/DL (0.55-1.02); GFR AFRICAN AMERICAN 20 ML/MIN (>=60); GFR NON AFRICAN AMERICAN 17 ML/MIN (>=60); GLUCOSE, SERUM 68 MG/DL (60-99); POTASSIUM, SERUM 3.9 MMOL/L (3.5-5.3); SODIUM, SERUM 131 MMOL/L (135-148)
[2017-02-05 05:25] LABS: INTERNATIONAL NORMAL RATI 2.5 UNITS (-)
[2017-02-05 05:30] LABS: CALCIUM, SERUM 8.5 MG/DL (8.5-10.4); CHLORIDE, SERUM 93 MMOL/L (96-112); CO2 (CARBON DIOXIDE) 21 MMOL/L (24-34); CREATININE 2.73 MG/DL (0.55-1.02); GFR AFRICAN AMERICAN 18 ML/MIN (>=60); GFR NON AFRICAN AMERICAN 15 ML/MIN (>=60); GLUCOSE, SERUM 73 MG/DL (60-99); SODIUM, SERUM 129 MMOL/L (135-148)
[2017-02-05 05:31] LABS: BUN (BLOOD UREA NITROGEN) 70 MG/DL (6-23)
[2017-02-06 05:28] LABS: INTERNATIONAL NORMAL RATI 2.7 UNITS (-); PROTIME (NOT ORD) 28.7 SEC (12.0-14.5)
[2017-02-06 05:34] LABS: BUN (BLOOD UREA NITROGEN) 81 MG/DL (6-23); CALCIUM, SERUM 8.6 MG/DL (8.5-10.4); CHLORIDE, SERUM 93 MMOL/L (96-112); CO2 (CARBON DIOXIDE) 20 MMOL/L (24-34); CREATININE 3.41 MG/DL (0.55-1.02); GFR AFRICAN AMERICAN 14 ML/MIN (>=60); GFR NON AFRICAN AMERICAN 12 ML/MIN (>=60); GLUCOSE, SERUM 71 MG/DL (60-99); POTASSIUM, SERUM 4.2 MMOL/L (3.5-5.3); SODIUM, SERUM 127 MMOL/L (135-148)
== END 2017-02-06 16:54 | DRG 871 ==
LOC: ER 06:08 → 4SO 08:12 → 2SO 08:12
PROVIDERS: Hospitalist; Internal Medicine; Nurse Practitioner
DX: A41.9 Sepsis, unspecified organism (principal); I50.33 Acute on chronic diastolic (congestive) heart failure; N17.0 Acute kidney failure with tubular necrosis; I13.0 Hypertensive heart and chronic kidney disease with heart failure and stage 1 through stage 4 chronic kidney disease, or unspecified chronic kidney disease; L03.115 Cellulitis of right lower limb; E87.1 Hypo-osmolality and hyponatremia; R65.20 Severe sepsis without septic shock; I27.2 Other secondary pulmonary hypertension; I27.9 Pulmonary heart disease, unspecified; N18.9 Chronic kidney disease, unspecified; Z51.5 Encounter for palliative care; Z66 Do not resuscitate; I05.0 Rheumatic mitral stenosis; I48.2 Chronic atrial fibrillation; I07.1 Rheumatic tricuspid insufficiency; E78.00 Pure hypercholesterolemia, unspecified; D50.9 Iron deficiency anemia, unspecified; E66.9 Obesity, unspecified; Z85.9 Personal history of malignant neoplasm, unspecified; Z95.2 Presence of prosthetic heart valve
CPT/HCPCS: 71010; 80048; 80053; 80069; 80076; 80162; 81001; 82570; 83605; 83735; 83880; 84145; 84156; 85025; 85610; 85730; 87040; 87070; 87077; 87186; 87205; 93005; 96374; 97161-GP; 99284; A9270-GY; J0690; J1205; J2020; J2405; J2543; J3370; P9047